=== PATIENT | female | born 1960 | race African-American/Black ===

== ENCOUNTER 2024-08-13 05:30 | Emergency (ER) | payer OTHER ==
[2024-08-13 05:36] VITALS: BMI 18.6
[2024-08-13 09:15] LABS: BASO % 0.6 % (0-2.0); EOS % 1.5 % (0-4.5); HEMATOCRIT 37.4 % (32.4-45.2); HEMOGLOBIN 12.2 GM/dL (10.7-15.3); LYMPH % 19.1 % (8-40); MCHC 32.5 g/dl (32.0-36.0); MEAN CELL VOLUME 92.5 fl (80-96); MEAN PLT VOLUME 7.2 fl (7.5-11.1); MONO % 4.1 % (3.8-10.2); NEUT % 74.7 % (42.8-82.8); PLATELET COUNT 349 10^3/uL (134-434); RBC 4.05 M/mm3 (3.60-5.2); RDW 13.4 % (11.6-15.6); WHITE BLOOD COUNT 9.2 K/mm3 (4.0-10.0)
[2024-08-13 09:36] LABS: CHLORIDE 104 mmol/L (98-107); SODIUM 135 mmol/L (136-145)
[2024-08-13 09:38] LABS: CALCIUM 9.4 mg/dL (8.5-10.1)
[2024-08-13 09:39] LABS: ALBUMIN 3.4 g/dl (3.4-5.0); BLOOD UREA NITROGEN 35.4 mg/dL (7-18); CO2 26 mmol/L (21-32); GLUCOSE,RANDOM 134 mg/dL (74-106); MAGNESIUM 1.7 mg/dL (1.8-2.4)
[2024-08-13 09:42] LABS: CREATININE 1.7 mg/dL (0.55-1.3); SGOT/AST 52 U/L (15-37); SGPT/ALT 22 U/L (13-61)
[2024-08-13 09:44] LABS: BILIRUBIN,TOTAL 0.4 mg/dL (0.2-1); TOT PROT 8.2 g/dl (6.4-8.2)
[2024-08-13 09:45] LABS: ALK PHOS 65 U/L (45-117)
[2024-08-13 09:52] LABS: ANION GAP 5 mmol/L (4-13)
[2024-08-13] MEDS ORDERED: LIDOCAINE 4% PATCH TP ONE (10:45)
[2024-08-13] MEDS ORDERED: MAGNESIUM OXIDE 400 MG TABLET (FP) ONE (10:55)
[2024-08-13] MEDS: LIDOCAINE 4% PATCH TP ONE (10:56)
[2024-08-13] MEDS: LACTATED RINGERS SOLUTION 1,000 ML/1,000 ML INFUS.BAG IV SCH (10:56)
[2024-08-13] MEDS: MAGNESIUM OXIDE 400 MG TABLET (FP) PO ONE (11:10)
[2024-08-13 12:47] LABS: URINE APPEARANCE CLEAR; URINE BILIRUBIN NEGATIVE (NEGATIVE); URINE COLOR YELLOW; URINE GLUCOSE (UA) 3+ (NEGATIVE); URINE KETONE NEGATIVE (NEGATIVE); URINE LEUK ESTERASE NEGATIVE (NEGATIVE); URINE NITRITE NEGATIVE (NEGATIVE); URINE PROTEIN TRACE (NEGATIVE); URINE UROBILINOGEN 0.2 mg/dL (0.2-1.0)
[2024-08-13 12:56] LABS: HIV INTERPRETATION NEGATIVE (NEGATIVE)
[2024-08-13 13:24] LABS: CHLORIDE 102 mmol/L (98-107); SODIUM 135 mmol/L (136-145)
[2024-08-13 14:01] LABS: POTASSIUM 6.4 mmol/L (3.5-5.1)
[2024-08-13 14:11] LABS: GLUCOSE,RANDOM 241 mg/dL (74-106)
[2024-08-13 14:12] LABS: ALBUMIN 3.2 g/dl (3.4-5.0); CALCIUM 9.1 mg/dL (8.5-10.1); CO2 22 mmol/L (21-32)
[2024-08-13 14:15] LABS: CREATININE 1.6 mg/dL (0.55-1.3); SGPT/ALT 20 U/L (13-61)
[2024-08-13 14:16] LABS: BILIRUBIN,TOTAL 0.4 mg/dL (0.2-1); SGOT/AST 52 U/L (15-37)
[2024-08-13 14:17] LABS: TOT PROT 7.6 g/dl (6.4-8.2)
[2024-08-13 14:18] LABS: ALK PHOS 62 U/L (45-117)
[2024-08-13 14:31] LABS: ANION GAP 11 mmol/L (4-13)
[2024-08-13 14:43] LABS: POTASSIUM 4.6 mmol/L (3.5-5.1)
[2024-08-13 14:46] LABS: ALBUMIN 3.3 g/dl (3.4-5.0); BLOOD UREA NITROGEN 35.5 mg/dL (7-18); CALCIUM 9.4 mg/dL (8.5-10.1)
[2024-08-13 14:49] LABS: CREATININE 1.6 mg/dL (0.55-1.3)
[2024-08-13 14:50] LABS: BILIRUBIN,TOTAL 0.4 mg/dL (0.2-1)
[2024-08-13 14:52] LABS: TOT PROT 7.5 g/dl (6.4-8.2)
[2024-08-13] MEDS: DEXTROSE 50%-WATER - 25 GM/50 ML VIAL IVPUSH ONE (16:10)
[2024-08-13] MEDS: CALCIUM GLUCONATE 10% - 1,000 MG/10 ML VIAL IVPB ONE (16:10)
[2024-08-13] MEDS: INSULIN REGULAR HUMAN 100 UNITS/ML *VIAL IVPUSH ONE (16:10)
[2024-08-13] MEDS: ALBUTEROL SO4 0.083% IH SOL 2.5 MG/3 ML VIAL.NEB. NEB ONE (16:11)
[2024-08-13 17:03] VITALS: BP 124/85; PULSE 79; RESP 16; TEMP 98.5
[2024-08-13] MEDS ORDERED: LIDOCAINE PATCH REMOVAL MC ONE (22:00)
== END 2024-08-13 18:06 ==
LOC: JER 05:30
DX: S09.90XA Unspecified injury of head, initial encounter (principal); R42 Dizziness and giddiness; R55 Syncope and collapse; R53.1 Weakness; M54.2 Cervicalgia; G89.29 Other chronic pain; W01.0XXA Fall on same level from slipping, tripping and stumbling without subsequent striking against object, initial encounter; Z20.822 Contact with and (suspected) exposure to COVID-19
CPT/HCPCS: 0241U-QW; 36415; 70450-TC; 71045-TC-FY; 72125-TC; 80053; 81003; 82962; 83735; 84484; 85025; 86803; 87389; 93005; 93010; 99285-25

== ENCOUNTER 2024-10-10 14:59 | Inpatient (IN) | payer MEDICARE, OTHER ==
[2024-10-10 15:54] VITALS: BMI 40.6
[2024-10-10] MEDS ORDERED: LIDOCAINE 4% PATCH TP ONE (16:37)
[2024-10-10] MEDS ORDERED: ACETAMINOPHEN INJECTION 100 ML ONE (16:37)
[2024-10-10 17:02] LABS: BASO % 0.6 % (0-2.0); EOS % 1.7 % (0-4.5); HEMATOCRIT 34.8 % (32.4-45.2); HEMOGLOBIN 11.3 GM/dL (10.7-15.3); LYMPH % 23.7 % (8-40); MCH 29.6 pg (25.7-33.7); MCHC 32.5 g/dl (32.0-36.0); MEAN CELL VOLUME 91.2 fl (80-96); MEAN PLT VOLUME 6.7 fl (7.5-11.1); MONO % 6.7 % (3.8-10.2); NEUT % 67.3 % (42.8-82.8); PLATELET COUNT 327 10^3/uL (134-434); RBC 3.82 M/mm3 (3.60-5.2); RDW 13.6 % (11.6-15.6); WHITE BLOOD COUNT 6.2 K/mm3 (4.0-10.0)
[2024-10-10] MEDS: LIDOCAINE 4% PATCH TP ONE (17:03)
[2024-10-10] MEDS: DEXTROSE 5%-NORMAL SALINE 500 ML IV ONE (17:04)
[2024-10-10] MEDS: ACETAMINOPHEN 1000 MG/100 ML BAG IVPB ONE (17:04)
[2024-10-10 17:13] LABS: INR 1.1 (0.83-1.09); PROTHROMBIN TIME (PATIENT) 12.4 SEC (9.7-13.0)
[2024-10-10 17:16] LABS: ACTIVATED PTT 38.8 SECONDS (25.2-36.5)
[2024-10-10 17:28] LABS: POTASSIUM 4.1 mmol/L (3.5-5.1)
[2024-10-10 17:29] LABS: CALCIUM 8.8 mg/dL (8.5-10.1)
[2024-10-10 17:30] LABS: ALBUMIN 3.4 g/dl (3.4-5.0); BLOOD UREA NITROGEN 28.9 mg/dL (7-18)
[2024-10-10 17:31] LABS: MAGNESIUM 1.3 mg/dL (1.8-2.4)
[2024-10-10 17:35] LABS: CREATININE 1.3 mg/dL (0.55-1.3)
[2024-10-10 17:36] LABS: BILIRUBIN,TOTAL 0.3 mg/dL (0.2-1); TOT PROT 7.4 g/dl (6.4-8.2)
[2024-10-10 19:39] LABS: EPI CELLS 1 /uL (0-25.1); HYALINE CASTS 0 /uL (0-3.1); PH,URINE 6.5 (5.0-8.0); URINE APPEARANCE CLEAR; URINE BACTERIA 16 /uL (0-1359); URINE BILIRUBIN NEGATIVE (NEGATIVE); URINE COLOR YELLOW; URINE GLUCOSE (UA) 3+ (NEGATIVE); URINE KETONE NEGATIVE (NEGATIVE); URINE LEUK ESTERASE NEGATIVE (NEGATIVE); URINE NITRITE NEGATIVE (NEGATIVE); URINE PROTEIN 1+ (NEGATIVE); URINE RBC 8 /uL (0-23.9); URINE UROBILINOGEN 0.2 mg/dL (0.2-1.0); URINE WBC 2 /uL (0-25.8)
[2024-10-10] MEDS ORDERED: ASPIRIN COATED 81 MG TABLET.EC ONE (19:56)
[2024-10-10] MEDS ORDERED: MAGNESIUM SULFATE IN WATER 2 GM/50 ML IVPB IVPB ONE (19:56)
[2024-10-10] MEDS: MAGNESIUM SULFATE IN WATER 2 GM/50 ML IVPB IVPB ONE (20:11)
[2024-10-10] MEDS: ASPIRIN 81 MG CHEWABLE TABLETS PO ONE (20:11)
[2024-10-10] MEDS: LIDOCAINE PATCH REMOVAL MC SCH (22:11)
[2024-10-10 22:32] LABS: HIV INTERPRETATION NEGATIVE (NEGATIVE)
[2024-10-10] MEDS ORDERED: PATIENT'S OWN MEDICATION (NON-FORMULARY) (Dulaglutide [Trulicity] 3 MG/0.5 ML Pen.Injctr) SQ SCH (23:45)
[2024-10-11] MEDS ORDERED: ACETAMINOPHEN 325 MG TABLET (FP) PO PRN (01:31)
[2024-10-11] MEDS: INSULIN ASPART SLIDING SCALE (NOVOLOG) 1 VIAL SQ SCH (06:25)
[2024-10-11] MEDS: PANTOPRAZOLE 40 MG TABLET PO SCH (06:26)
[2024-10-11] MEDS: INSULIN (LEVEMIR) 100 UNITS/ML UNITS SQ SCH (06:26)
[2024-10-11] MEDS: EMPAGLIFLOZIN (JARDIANCE) 25 MG TABLET PO SCH (06:28)
[2024-10-11] MEDS ORDERED: INSULIN (LEVEMIR) 100 UNITS/ML UNITS SQ SCH (07:23)
[2024-10-11] MEDS: TAMSULOSIN HCL 0.4 MG CAP PO SCH (08:52)
[2024-10-11] MEDS: LOSARTAN POTASSIUM 50 MG TABLET PO SCH (09:28)
[2024-10-11] MEDS: ASPIRIN COATED 81 MG TABLET.EC PO SCH (09:28)
[2024-10-11] MEDS: DULoxetine HCL 30 MG CAPSULE.DR PO SCH (09:28)
[2024-10-11] MEDS: GABAPENTIN 300 MG CAPSULE PO SCH (09:28)
[2024-10-11] MEDS: CYANOCOBALAMIN 1,000 MCG TABLET (FP) PO SCH (09:29)
[2024-10-11] MEDS: ENOXAPARIN NA (PORCINE) 40 MG/0.4 ML DISP.SYRIN SQ SCH (09:29)
[2024-10-11] MEDS: NIFEdipine E.R. 90 MG TABLET PO SCH (09:29)
[2024-10-11] MEDS: LIDOCAINE 4% PATCH TP SCH (09:29)
[2024-10-11 10:21] LABS: POTASSIUM 3.9 mmol/L (3.5-5.1)
[2024-10-11 10:28] LABS: ALBUMIN 3.4 g/dl (3.4-5.0); BLOOD UREA NITROGEN 20.8 mg/dL (7-18); CALCIUM 8.9 mg/dL (8.5-10.1)
[2024-10-11 10:29] LABS: MAGNESIUM 1.6 mg/dL (1.8-2.4)
[2024-10-11 10:31] LABS: CREATININE 1.2 mg/dL (0.55-1.3); PHOSPHOROUS 3.5 mg/dL (2.5-4.9)
[2024-10-11 10:35] LABS: BILIRUBIN,TOTAL 0.4 mg/dL (0.2-1)
[2024-10-11 10:36] LABS: TOT PROT 7.6 g/dl (6.4-8.2)
[2024-10-11] MEDS: PATIENT'S OWN MEDICATION (NON-FORMULARY) (Hydroxyzine Hcl [Hydroxyzine Hcl] 10 MG Tablet) PO SCH (10:54)
[2024-10-11 11:03] LABS: HEMATOCRIT 37.1 % (32.4-45.2); HEMOGLOBIN 12.3 GM/dL (10.7-15.3); MCHC 33.2 g/dl (32.0-36.0); MEAN CELL VOLUME 90.4 fl (80-96); MEAN PLT VOLUME 7.1 fl (7.5-11.1); PLATELET COUNT 355 10^3/uL (134-434); RDW 13.5 % (11.6-15.6); WHITE BLOOD COUNT 5.9 K/mm3 (4.0-10.0)
[2024-10-11 18:43] VITALS: BP 124/70; PULSE 82; RESP 17; TEMP 98.4
[2024-10-11] MEDS ORDERED: LIDOCAINE PATCH REMOVAL MC SCH (22:00)
[2024-10-11] MEDS ORDERED: ATORVASTATIN CA 20 MG TABLET (FP) PO SCH (22:00)
== END 2024-10-11 18:44 | disposition home or self-care (01) | DRG 311 ==
LOC: JER 14:59 → JERBED 20:42 → J4S 21:55 → OBSVTOIN 23:42
PROVIDERS: ADMIT Student in an Organized Health Care Education/Training Program; ATTEND Internal Medicine
DX: I24.89 Other forms of acute ischemic heart disease (principal); E11.40 Type 2 diabetes mellitus with diabetic neuropathy, unspecified; I10 Essential (primary) hypertension; E78.5 Hyperlipidemia, unspecified; R32 Unspecified urinary incontinence; M16.10 Unilateral primary osteoarthritis, unspecified hip; M54.9 Dorsalgia, unspecified; G89.29 Other chronic pain
CPT/HCPCS: 36415; 70450-TC; 71046-TC-FY; 72125-TC; 72131-TC; 72170-TC-FY; 73030-TC-LT-FY; 80053; 81003; 82962; 83735; 84100; 84484; 85025; 85027; 85610; 85730; 86803; 87086; 87389; 93005; 93010; 93306-TC; 97116-GP; 97161-GP; 99285-25; G0378; J0131

== ENCOUNTER 2024-10-24 04:15 | Day surgery (SDC) | payer OTHER ==
[2024-10-22 16:17] VITALS: BMI 38.7
[2024-10-24] MEDS ORDERED: BUPIVACAINE HCL/PF 0.75% 10 ML VIAL ONE (07:20)
[2024-10-24] MEDS ORDERED: ACETAMINOPHEN 500 MG TABLET (FP) PO PRN (08:56)
[2024-10-24 16:53] VITALS: RESP 18
[2024-10-24 17:29] VITALS: BP 159/77; PULSE 87; TEMP 97.9
== END 2024-10-24 17:20 | disposition home or self-care (01) ==
LOC: JASU-SURG 04:15
PROVIDERS: ATTEND Pain Medicine Pain Medicine
PROC: 3E0T33Z Introduction of Anti-inflammatory into Peripheral Nerves and Plexi, Percutaneous Approach (ICD-10-PCS; 2024-10-24)
PROC: 3E0T3BZ Introduction of Anesthetic Agent into Peripheral Nerves and Plexi, Percutaneous Approach (ICD-10-PCS; principal; 2024-10-24 15:15)
DX: M47.816 Spondylosis without myelopathy or radiculopathy, lumbar region (principal)
CPT/HCPCS: 76000-TC-FY

== ENCOUNTER 2024-11-10 19:53 | Observation (INO) | payer OTHER ==
[2024-11-10] MEDS ORDERED: ACETAMINOPHEN 500 MG TABLET (FP) ONE (20:50)
[2024-11-10] MEDS ORDERED: ACETAMINOPHEN 325 MG TABLET (FP) ONE (20:56)
[2024-11-10] MEDS ORDERED: LIDOCAINE 4% PATCH TP ONE (20:56)
[2024-11-10] MEDS: ACETAMINOPHEN 325 MG TABLET (FP) PO ONE (21:10)
[2024-11-10] MEDS: LIDOCAINE 4% PATCH TP ONE (21:10)
[2024-11-10] MEDS: SODIUM CHLORIDE 0.9% 500 ML INFUS.BAG IV ONE (21:10)
[2024-11-10 21:12] LABS: BASO % 0.7 % (0-2.0); EOS % 2.1 % (0-4.5); HEMATOCRIT 35.2 % (32.4-45.2); HEMOGLOBIN 11.3 GM/dL (10.7-15.3); MCH 29.4 pg (25.7-33.7); MEAN PLT VOLUME 7.1 fl (7.5-11.1); MONO % 6.5 % (3.8-10.2); NEUT % 71.7 % (42.8-82.8); PLATELET COUNT 319 10^3/uL (134-434); RBC 3.83 M/mm3 (3.60-5.2); RDW 13.3 % (11.6-15.6); WHITE BLOOD COUNT 8.3 K/mm3 (4.0-10.0)
[2024-11-10 21:14] LABS: INR 0.99 (0.83-1.09); PROTHROMBIN TIME (PATIENT) 11.4 SEC (9.7-13.0)
[2024-11-10 21:17] LABS: ACTIVATED PTT 36.2 SECONDS (25.2-36.5)
[2024-11-10 21:23] LABS: CHLORIDE 98 mmol/L (98-107); SODIUM 130 mmol/L (136-145)
[2024-11-10 21:25] LABS: CALCIUM 9.1 mg/dL (8.5-10.1); POTASSIUM 7.4 mmol/L (3.5-5.1)
[2024-11-10 21:26] LABS: ANION GAP 7 mmol/L (4-13); BLOOD UREA NITROGEN 45.2 mg/dL (7-18); CO2 25 mmol/L (21-32); GLUCOSE,RANDOM 317 mg/dL (74-106); MAGNESIUM 1.4 mg/dL (1.8-2.4)
[2024-11-10 21:29] LABS: CREATININE 2.2 mg/dL (0.55-1.3); SGOT/AST 67 U/L (15-37)
[2024-11-10 21:30] LABS: BILIRUBIN,TOTAL 0.6 mg/dL (0.2-1)
[2024-11-10 21:31] LABS: TOT PROT 7.8 g/dl (6.4-8.2)
[2024-11-10 21:32] LABS: ALK PHOS 91 U/L (45-117)
[2024-11-10 21:33] LABS: SGPT/ALT 23 U/L (13-61)
[2024-11-10 22:29] LABS: POTASSIUM 4.5 mmol/L (3.5-5.1)
[2024-11-10 22:31] LABS: BLOOD UREA NITROGEN 44.1 mg/dL (7-18)
[2024-11-10] MEDS: ACETAMINOPHEN 1000 MG/100 ML BAG IVPB ONE (23:09)
[2024-11-10] MEDS: LIDOCAINE PATCH REMOVAL MC SCH (23:16)
[2024-11-10] MEDS ORDERED: MAGNESIUM SULFATE IN WATER 2 GM/50 ML IVPB IVPB ONE (23:17)
[2024-11-10] MEDS: LACTATED RINGERS SOLUTION 1000 ML INFUS.BAG IV ONE (23:29)
[2024-11-10] MEDS: MAGNESIUM SULFATE IN WATER 2 GM/50 ML IVPB IVPB ONE (23:30)
[2024-11-11] MEDS ORDERED: INSULIN REGULAR HUMAN 100 UNITS/ML *VIAL IVPUSH ONE (00:45)
[2024-11-11] MEDS: INSULIN REGULAR HUMAN 100 UNITS/ML *VIAL IVPUSH ONE (01:18)
[2024-11-11 04:04] VITALS: RESP 20; TEMP 97.5; BMI 38.2
[2024-11-11] MEDS ORDERED: SODIUM CHLORIDE 1,000 ML IV SCH (04:30)
[2024-11-11] MEDS: LACTATED RINGERS SOLUTION 1,000 ML/1,000 ML INFUS.BAG IV SCH ×2 (05:30→11:55)
[2024-11-11] MEDS: HEPARIN NA (PORCINE) 5,000 UNITS/ML 1ML VIAL SQ SCH (06:05)
[2024-11-11] MEDS: INSULIN ASPART SLIDING SCALE (NOVOLOG) 1 VIAL SQ SCH (06:56)
[2024-11-11 09:16] LABS: BASO % 0.4 % (0-2.0); EOS % 1.6 % (0-4.5); HEMATOCRIT 33.7 % (32.4-45.2); HEMOGLOBIN 11.5 GM/dL (10.7-15.3); LYMPH % 27.9 % (8-40); MCH 30.4 pg (25.7-33.7); MEAN CELL VOLUME 89.5 fl (80-96); MEAN PLT VOLUME 6.8 fl (7.5-11.1); MONO % 6.6 % (3.8-10.2); NEUT % 63.5 % (42.8-82.8); PLATELET COUNT 355 10^3/uL (134-434); RBC 3.77 M/mm3 (3.60-5.2); RDW 13.4 % (11.6-15.6); WHITE BLOOD COUNT 5.5 K/mm3 (4.0-10.0)
[2024-11-11 09:50] LABS: POTASSIUM 4.4 mmol/L (3.5-5.1)
[2024-11-11 10:13] LABS: CALCIUM 9.3 mg/dL (8.5-10.1)
[2024-11-11 10:14] LABS: ALBUMIN 3.2 g/dl (3.4-5.0); BLOOD UREA NITROGEN 40.8 mg/dL (7-18); MAGNESIUM 1.9 mg/dL (1.8-2.4)
[2024-11-11 10:16] LABS: CREATININE 1.7 mg/dL (0.55-1.3)
[2024-11-11 10:17] LABS: PHOSPHOROUS 3.8 mg/dL (2.5-4.9)
[2024-11-11 10:19] LABS: BILIRUBIN,TOTAL 0.2 mg/dL (0.2-1); TOT PROT 7.1 g/dl (6.4-8.2)
[2024-11-11] MEDS: DULoxetine HCL 30 MG CAPSULE.DR PO SCH (10:48)
[2024-11-11] MEDS: GABAPENTIN 300 MG CAPSULE PO SCH (10:48)
[2024-11-11] MEDS: ASPIRIN COATED 81 MG TABLET.EC PO SCH (10:48)
[2024-11-11] MEDS: PANTOPRAZOLE 40 MG TABLET PO SCH (10:48)
[2024-11-11] MEDS: LIDOCAINE 4% PATCH TP SCH (10:49)
[2024-11-11] MEDS: INSULIN (LEVEMIR) 100 UNITS/ML UNITS SQ SCH (10:56)
[2024-11-11] MEDS ORDERED: INSULIN ASPART SLIDING SCALE (NOVOLOG) 1 VIAL SQ ONE (11:13)
[2024-11-11 16:27] VITALS: BP 160/66; PULSE 81
[2024-11-11] MEDS ORDERED: ATORVASTATIN CA 20 MG TABLET (FP) PO SCH (22:00)
[2024-11-11] MEDS ORDERED: LIDOCAINE PATCH REMOVAL MC SCH (22:00)
== END 2024-11-11 16:47 | disposition home or self-care (01) ==
LOC: JER 19:53 → JERBED 23:44 → J6S 11-11 02:39
PROVIDERS: ADMIT Internal Medicine; ATTEND Internal Medicine
PROC: 3E033GC Introduction of Other Therapeutic Substance into Peripheral Vein, Percutaneous Approach (ICD-10-PCS; principal; 2024-11-10)
PROC: 3E033VG Introduction of Insulin into Peripheral Vein, Percutaneous Approach (ICD-10-PCS; 2024-11-10)
PROC: 3E033NZ Introduction of Analgesics, Hypnotics, Sedatives into Peripheral Vein, Percutaneous Approach (ICD-10-PCS; 2024-11-10)
DX: N17.9 Acute kidney failure, unspecified (principal); I95.1 Orthostatic hypotension; R53.81 Other malaise; I10 Essential (primary) hypertension; E11.65 Type 2 diabetes mellitus with hyperglycemia; E78.5 Hyperlipidemia, unspecified; R29.6 Repeated falls; E83.42 Hypomagnesemia; M54.59 Other low back pain; G89.29 Other chronic pain; E11.40 Type 2 diabetes mellitus with diabetic neuropathy, unspecified; Z87.440 Personal history of urinary (tract) infections; W18.39XA Other fall on same level, initial encounter; Z91.81 History of falling; Y93.89 Activity, other specified; Y92.008 Other place in unspecified non-institutional (private) residence as the place of occurrence of the external cause
CPT/HCPCS: 36415; 71045-TC-FY; 73030-TC-RT-FY; 80048; 80053; 82962; 83036; 83735; 84100; 84484; 85025; 85610; 85730; 93005; 93010; 96365; 96372; 96375; 97116-GP; 97161-GP; 99285-25; G0378; J1644

== ENCOUNTER 2025-01-02 04:00 | Day surgery (SDC) | payer OTHER ==
[2025-01-02] MEDS ORDERED: ACETAMINOPHEN 500 MG TABLET (FP) PO PRN (09:19)
[2025-01-02 11:06] VITALS: PULSE 83; RESP 18
[2025-01-02] MEDS: LIDOCAINE HCL 1% PRESERVATIVE FREE - 30ML VIAL IJ ONE (11:38)
[2025-01-02] MEDS: BUPIVACAINE HCL/PF 0.5% (5 MG/ML) 30 ML VIAL IJ ONE ×3 (11:39→11:44)
[2025-01-02] MEDS: TRIAMCINOLONE ACET 40MG/1ML VIAL IM ONE ×2 (11:40→11:44)
[2025-01-02] MEDS: IOHEXOL 180 MG/1 ML ML IJ ONE ×2 (11:40)
[2025-01-02 12:34] VITALS: BP 130/52; TEMP 97.6
== END 2025-01-02 12:50 | disposition home or self-care (01) ==
LOC: JASU-SURG 04:00
PROVIDERS: ATTEND Pain Medicine Pain Medicine
PROC: 3E0U3BZ Introduction of Anesthetic Agent into Joints, Percutaneous Approach (ICD-10-PCS; 2025-01-02)
PROC: 3E0U33Z Introduction of Anti-inflammatory into Joints, Percutaneous Approach (ICD-10-PCS; principal; 2025-01-02 11:45)
DX: M53.3 Sacrococcygeal disorders, not elsewhere classified (principal)
CPT/HCPCS: 76000-TC-FY

== ENCOUNTER 2025-02-26 17:58 | Emergency (ER) | payer MEDICARE, OTHER ==
[2025-02-26 18:52] VITALS: BMI 38.7
[2025-02-26 20:32] LABS: ABSOLUTE IMMATURE GRANULOCYTES 0.04 x10^3/uL (0.0-0.031); BASOPHILS # 0.03 x10^3/uL (0.01-0.08); EOSINOPHIL % 0.8 % (0.7-5.8); EOSINOPHILS # 0.06 x10^3/uL (0.04-0.36); HEMOGLOBIN 12.2 g/dL (11.2-15.7); MCHC 32.1 g/dl (32.2-35.5); MEAN PLT VOLUME 8.8 fl (9.4-12.3); MONOCYTE # 0.62 x10^3/uL (0.24-0.86); MONOCYTE % 8.3 % (4.7-12.5); PLATELET COUNT 323 x10^3/uL (182-369); RDW 12.7 % (12.4-16.4)
[2025-02-26] MEDS: SODIUM CHLORIDE 1,000 ML IV STA (20:48)
[2025-02-26 20:55] LABS: CHLORIDE 100 mmol/L (98-107); POTASSIUM 4.6 mmol/L (3.5-5.1); SODIUM 134 mmol/L (136-145)
[2025-02-26 20:57] LABS: CALCIUM 9.5 mg/dL (8.5-10.1)
[2025-02-26 20:58] LABS: ALBUMIN 3.1 g/dl (3.4-5.0); ANION GAP 9 mmol/L (4-13); BLOOD UREA NITROGEN 26.8 mg/dL (7-18); CO2 25 mmol/L (21-32); GLUCOSE,RANDOM 312 mg/dL (74-106)
[2025-02-26 21:01] LABS: CREATININE 1.8 mg/dL (0.55-1.3); SGOT/AST 22 U/L (15-37); SGPT/ALT 20 U/L (13-61)
[2025-02-26 21:02] LABS: BILIRUBIN,TOTAL 0.4 mg/dL (0.2-1); TOT PROT 7.4 g/dl (6.4-8.2)
[2025-02-26 21:04] LABS: ALK PHOS 97 U/L (45-117)
[2025-02-26 21:34] LABS: VENOUS O2 SATURATION 88.1 % (70-80); VENOUS PCO2 39.8 mmHg (38-52); VENOUS PH 7.393 (7.310-7.410)
[2025-02-27 00:05] LABS: EPI CELLS 3 /uL (0-25.1); HYALINE CASTS 0 /uL (0-3.1); PH,URINE 5.5 (5.0-8.0); URINE APPEARANCE CLEAR; URINE BACTERIA 0 /uL (0-1359); URINE BILIRUBIN NEGATIVE (NEGATIVE); URINE COLOR YELLOW; URINE GLUCOSE (UA) 3+ (NEGATIVE); URINE KETONE NEGATIVE (NEGATIVE); URINE LEUK ESTERASE NEGATIVE (NEGATIVE); URINE NITRITE NEGATIVE (NEGATIVE); URINE PROTEIN 2+ (NEGATIVE); URINE RBC 5 /uL (0-23.9); URINE UROBILINOGEN 0.2 mg/dL (0.2-1.0); URINE WBC 4 /uL (0-25.8)
[2025-02-27 00:11] LABS: URINE AMPHETAMINES NEGATIVE (NEGATIVE)
[2025-02-27 00:12] LABS: COCAINE, UR NEGATIVE (NEGATIVE); METHADONE, UR NEGATIVE (NEGATIVE); OPIATES, URI NEGATIVE (NEGATIVE); PHENCYCLIDINE,URINE NEGATIVE (NEGATIVE); URINE BENZODIAZEPINES NEGATIVE (NEGATIVE)
[2025-02-27 00:20] LABS: URINE BARBITURATES NEGATIVE (NEGATIVE)
[2025-02-27 01:21] VITALS: BP 163/71; PULSE 85; RESP 18; TEMP 97.6
== END 2025-02-27 02:30 | disposition home or self-care (01) ==
LOC: JER 17:58
PROC: 3E0337Z Introduction of Electrolytic and Water Balance Substance into Peripheral Vein, Percutaneous Approach (ICD-10-PCS; principal; 2025-02-26)
DX: R53.1 Weakness (principal); R53.83 Other fatigue; W01.0XXA Fall on same level from slipping, tripping and stumbling without subsequent striking against object, initial encounter
CPT/HCPCS: 0241U-QW; 36415; 80053; 80307; 81003; 82010; 82803; 82962; 84484; 85025; 87086; 93005; 93010; 99284-25

== ENCOUNTER 2025-05-26 15:42 | Inpatient (IN) | payer OTHER, MEDICARE ==
[2025-05-26 17:47] VITALS: BMI 38.7
[2025-05-26] MEDS: SODIUM CHLORIDE 0.9% 500 ML INFUS.BAG IV ONE (18:12)
[2025-05-26 18:27] LABS: MCHC 31.0 g/dl (32.2-35.5); MEAN CELL VOLUME 95.6 fl (79.4-94.8); MEAN PLT VOLUME 9.3 fl (9.4-12.3); RDW 12.6 % (12.4-16.4)
[2025-05-26 18:39] LABS: INR 1.15 (0.83-1.09); PROTHROMBIN TIME (PATIENT) 12.7 SEC (9.7-13.0)
[2025-05-26 18:42] LABS: ACTIVATED PTT 33.1 SECONDS (25.2-36.5)
[2025-05-26 18:53] LABS: CO2 26.0 mmol/L (21-32); GLUCOSE,RANDOM 197.0 mg/dL (74-106)
[2025-05-26 18:56] LABS: CREATININE 1.6 mg/dL (0.55-1.3); SGOT/AST 30.0 U/L (15-37); SGPT/ALT 25.0 U/L (13-61)
[2025-05-26 18:57] LABS: TOT PROT 7.3 g/dl (6.4-8.2)
[2025-05-26 18:59] LABS: ALK PHOS 85.0 U/L (45-117)
[2025-05-26] MEDS ORDERED: HEPARIN NA (PORCINE) 5,000 UNITS/ML 1ML VIAL ONE (22:03)
[2025-05-26] MEDS: HEPARIN NA (PORCINE) 5,000 UNITS/ML 1ML VIAL SQ SCH (22:13)
[2025-05-26 22:25] LABS: EPI CELLS 15 /uL (0-25.1); HYALINE CASTS 0 /uL (0-3.1); URINE APPEARANCE TURBID; URINE BACTERIA >9,000 /uL (0-1359); URINE BILIRUBIN NEGATIVE (NEGATIVE); URINE COLOR YELLOW; URINE GLUCOSE (UA) 3+ (NEGATIVE); URINE KETONE 1+ (NEGATIVE); URINE LEUK ESTERASE 2+ (NEGATIVE); URINE NITRITE NEGATIVE (NEGATIVE); URINE PROTEIN 3+ (NEGATIVE); URINE UROBILINOGEN 0.2 mg/dL (0.2-1.0); URINE WBC 21049 /uL (0-25.8)
[2025-05-26 22:49] LABS: URINE RBC 329.6 /uL (0-23.9)
[2025-05-26] MEDS ORDERED: LORATADINE 10 MG TABLET PO PRN (23:44)
[2025-05-27] MEDS: LIDOCAINE PATCH REMOVAL MC SCH (00:10)
[2025-05-27] MEDS: SODIUM CHLORIDE 1,000 ML IV SCH (00:26)
[2025-05-27] MEDS: MAGNESIUM SULF 50% (8.12 MEQ/2 ML-1 GM VIAL) IVPB ONE (01:31)
[2025-05-27] MEDS ORDERED: MAGNESIUM SULFATE IN WATER 2 GM/50 ML IVPB IVPB ONE (01:32)
[2025-05-27] MEDS: CEFTRIAXONE 1 GM in DEXTROSE 5%-WATER - 50 ML IVPB SCH (05:11)
[2025-05-27] MEDS: GABAPENTIN 300 MG CAPSULE PO SCH (05:11)
[2025-05-27] MEDS: INSULIN ASPART SLIDING SCALE (NOVOLOG) 1 VIAL SQ SCH (06:00)
[2025-05-27] MEDS ORDERED: INSULIN GLARGINE (LANTUS) 100 UNITS/ML UNITS SQ SCH (07:00)
[2025-05-27 07:58] LABS: ABSOLUTE IMMATURE GRANULOCYTES 0.04 x10^3/uL (0.0-0.031); BASOPHILS # 0.02 x10^3/uL (0.01-0.08); EOSINOPHIL % 2.2 % (0.7-5.8); EOSINOPHILS # 0.13 x10^3/uL (0.04-0.36); MCHC 30.7 g/dl (32.2-35.5); MEAN CELL VOLUME 96.2 fl (79.4-94.8); MEAN PLT VOLUME 9.3 fl (9.4-12.3); MONOCYTE # 0.58 x10^3/uL (0.24-0.86); MONOCYTE % 9.9 % (4.7-12.5); RDW 12.6 % (12.4-16.4)
[2025-05-27 09:12] LABS: CO2 25.0 mmol/L (21-32); GLUCOSE,RANDOM 165.0 mg/dL (74-106); SGPT/ALT 20.0 U/L (13-61)
[2025-05-27 09:15] LABS: SGOT/AST 17.0 U/L (15-37)
[2025-05-27 09:17] LABS: CREATININE 1.3 mg/dL (0.55-1.3)
[2025-05-27 09:18] LABS: TOT PROT 6.6 g/dl (6.4-8.2)
[2025-05-27 09:20] LABS: ALK PHOS 79.0 U/L (45-117)
[2025-05-27] MEDS ORDERED: CEFTRIAXONE 1 GM in DEXTROSE 5%-WATER - 50 ML IVPB SCH (10:00)
[2025-05-27] MEDS: INSULIN GLARGINE (LANTUS) 100 UNITS/ML UNITS SQ SCH (10:19)
[2025-05-27] MEDS: NIFEdipine E.R. 90 MG TABLET PO SCH (10:22)
[2025-05-27] MEDS: LOSARTAN POTASSIUM 50 MG TABLET PO SCH (10:22)
[2025-05-27] MEDS: TAMSULOSIN HCL 0.4 MG CAP PO SCH (10:23)
[2025-05-27] MEDS: CHOLECALCIFEROL (VIT D3) 1,000 UNIT (25 MCG) TABLET PO SCH (10:23)
[2025-05-27] MEDS: ASPIRIN COATED 81 MG TABLET.EC PO SCH (10:23)
[2025-05-27] MEDS: CYANOCOBALAMIN 1,000 MCG TABLET (FP) PO SCH (10:23)
[2025-05-27] MEDS: LIDOCAINE 5% TOPICAL PATCH TP SCH (10:24)
[2025-05-27] MEDS: metFORMIN HCL 500 MG TABLET (FP) PO SCH (18:28)
[2025-05-27] MEDS: ATORVASTATIN CA 20 MG TABLET (FP) PO SCH (21:33)
[2025-05-27] MEDS ORDERED: PATIENT'S OWN MEDICATION (NON-FORMULARY) (Metformin Hcl [Metformin Er Osmotic] 1,000 MG Ta PO SCH (22:00)
[2025-05-28] MEDS: EMPAGLIFLOZIN (JARDIANCE) 25 MG TABLET PO SCH (06:34)
[2025-05-28] MEDS ORDERED: INSULIN GLARGINE (LANTUS) 100 UNITS/ML UNITS SQ SCH (07:00)
[2025-05-28 07:36] LABS: ABSOLUTE IMMATURE GRANULOCYTES 0.05 x10^3/uL (0.0-0.031); BASOPHILS # 0.02 x10^3/uL (0.01-0.08); EOSINOPHIL % 3.5 % (0.7-5.8); EOSINOPHILS # 0.16 x10^3/uL (0.04-0.36); MCHC 31.3 g/dl (32.2-35.5); MEAN CELL VOLUME 94.4 fl (79.4-94.8); MEAN PLT VOLUME 9.4 fl (9.4-12.3); MONOCYTE # 0.52 x10^3/uL (0.24-0.86); MONOCYTE % 11.3 % (4.7-12.5); RDW 12.2 % (12.4-16.4)
[2025-05-28 07:56] LABS: CO2 26.0 mmol/L (21-32); GLUCOSE,RANDOM 218.0 mg/dL (74-106)
[2025-05-28 07:59] LABS: CREATININE 1.8 mg/dL (0.55-1.3); SGOT/AST 15.0 U/L (15-37); SGPT/ALT 19.0 U/L (13-61)
[2025-05-28 08:01] LABS: TOT PROT 6.3 g/dl (6.4-8.2)
[2025-05-28 08:02] LABS: ALK PHOS 84.0 U/L (45-117)
[2025-05-28] MEDS ORDERED: PATIENT'S OWN MEDICATION (NON-FORMULARY) (Empagliflozin 25 MG Tablet) PO SCH (10:00)
[2025-05-28] MEDS: INSULIN (NOVOLOG) ASPART 100 UNITS/ML 10ML VIAL SQ ONE (22:28)
[2025-05-29] MEDS: INSULIN GLARGINE (LANTUS) 100 UNITS/ML UNITS SQ SCH (06:19)
[2025-05-29] MEDS: INSULIN ASPART SLIDING SCALE (NOVOLOG) 1 VIAL SQ SCH (06:21)
[2025-05-29 08:09] LABS: ABSOLUTE IMMATURE GRANULOCYTES 0.10 x10^3/uL (0.0-0.031); BASOPHILS # 0.02 x10^3/uL (0.01-0.08); EOSINOPHIL % 3.6 % (0.7-5.8); EOSINOPHILS # 0.18 x10^3/uL (0.04-0.36); MCHC 31.6 g/dl (32.2-35.5); MEAN CELL VOLUME 95.1 fl (79.4-94.8); MEAN PLT VOLUME 9.6 fl (9.4-12.3); MONOCYTE # 0.55 x10^3/uL (0.24-0.86); MONOCYTE % 10.9 % (4.7-12.5); RDW 12.0 % (12.4-16.4)
[2025-05-29 08:33] LABS: CO2 26.0 mmol/L (21-32); GLUCOSE,RANDOM 266.0 mg/dL (74-106)
[2025-05-29 08:34] LABS: CREATININE 1.9 mg/dL (0.55-1.3)
[2025-05-29 08:35] LABS: SGPT/ALT 21.0 U/L (13-61)
[2025-05-29 08:36] LABS: SGOT/AST 14.0 U/L (15-37); TOT PROT 6.4 g/dl (6.4-8.2)
[2025-05-29 08:37] LABS: ALK PHOS 99.0 U/L (45-117)
[2025-05-29] MEDS: SODIUM CHLORIDE 0.45% 1,000 ML IV SCH (12:00)
[2025-05-30 08:23] LABS: ABSOLUTE IMMATURE GRANULOCYTES 0.17 x10^3/uL (0.0-0.031); BASOPHILS # 0.04 x10^3/uL (0.01-0.08); EOSINOPHIL % 3.6 % (0.7-5.8); EOSINOPHILS # 0.20 x10^3/uL (0.04-0.36); MCHC 31.3 g/dl (32.2-35.5); MEAN CELL VOLUME 94.6 fl (79.4-94.8); MEAN PLT VOLUME 9.0 fl (9.4-12.3); MONOCYTE # 0.53 x10^3/uL (0.24-0.86); MONOCYTE % 9.5 % (4.7-12.5); RDW 12.1 % (12.4-16.4)
[2025-05-30 09:28] LABS: GLUCOSE,RANDOM 100.0 mg/dL (74-106)
[2025-05-30 09:29] LABS: CO2 27.0 mmol/L (21-32)
[2025-05-30 09:32] LABS: CREATININE 1.3 mg/dL (0.55-1.3); SGOT/AST 17.0 U/L (15-37); SGPT/ALT 20.0 U/L (13-61)
[2025-05-30 09:33] LABS: TOT PROT 6.6 g/dl (6.4-8.2)
[2025-05-30 09:34] LABS: ALK PHOS 82.0 U/L (45-117)
[2025-05-30 10:18] VITALS: BP 124/79; PULSE 89; RESP 18; TEMP 97.3
== END 2025-05-30 14:00 | disposition home or self-care (01) | DRG 204 ==
LOC: JER 15:42 → JERBED 21:27 → OBSVTOIN 21:48 → J4S 05-27 01:58
PROVIDERS: ADMIT Internal Medicine; ATTEND Internal Medicine
DX: R55 Syncope and collapse (principal); I10 Essential (primary) hypertension; E78.5 Hyperlipidemia, unspecified; E11.42 Type 2 diabetes mellitus with diabetic polyneuropathy; M62.82 Rhabdomyolysis; E83.42 Hypomagnesemia; E66.9 Obesity, unspecified; N17.9 Acute kidney failure, unspecified; N39.0 Urinary tract infection, site not specified; M54.9 Dorsalgia, unspecified; Z68.38 Body mass index [BMI] 38.0-38.9, adult; F32.A Depression, unspecified
CPT/HCPCS: 36415; 70450-TC; 70551-TC; 71045-TC-FY; 72125-TC; 73030-TC-RT-FY; 80053; 81003; 82010; 82550; 82553; 82962; 83036; 83605; 83735; 84100; 84484; 85025; 85027; 85610; 85730; 87086; 93005; 93010; 97116-GP; 97161-GP; 99285-25; G0378

== ENCOUNTER 2025-06-28 18:02 | Inpatient (IN) | payer MEDICARE, OTHER ==
[2025-06-28] MEDS ORDERED: LIDOCAINE 4% PATCH TP ONE (18:51)
[2025-06-28] MEDS: LIDOCAINE 4% PATCH TP ONE (18:56)
[2025-06-28 19:08] LABS: BG HCT 41.0 % (32.4-45.2); VENOUS BASE EXCESS -2.6 mmol/L (-2-2); VENOUS O2 SATURATION 25.4 % (70-80); VENOUS PCO2 47.6 mmHg (38-52); VENOUS PH 7.318 (7.310-7.410)
[2025-06-28 19:18] LABS: ABSOLUTE IMMATURE GRANULOCYTES 0.08 x10^3/uL (0.0-0.031); BASOPHILS # 0.02 x10^3/uL (0.01-0.08); EOSINOPHIL % 0.7 % (0.7-5.8); EOSINOPHILS # 0.06 x10^3/uL (0.04-0.36); MCHC 32.9 g/dl (32.2-35.5); MEAN CELL VOLUME 91.5 fl (79.4-94.8); MEAN PLT VOLUME 9.3 fl (9.4-12.3); MONOCYTE # 0.57 x10^3/uL (0.24-0.86); MONOCYTE % 6.6 % (4.7-12.5); RDW 12.7 % (12.4-16.4)
[2025-06-28 19:36] LABS: CO2 26.0 mmol/L (21-32); GLUCOSE,RANDOM 373.0 mg/dL (74-106)
[2025-06-28 19:39] LABS: CREATININE 2.3 mg/dL (0.55-1.3); SGOT/AST 16.0 U/L (15-37); SGPT/ALT 20.0 U/L (13-61)
[2025-06-28 19:41] LABS: TOT PROT 7.8 g/dl (6.4-8.2)
[2025-06-28 19:42] LABS: ALK PHOS 122.0 U/L (45-117)
[2025-06-28] MEDS ORDERED: ACETAMINOPHEN INJECTION 100 ML ONE (19:54)
[2025-06-28] MEDS: ACETAMINOPHEN 1000 MG/100 ML BAG IVPB ONE (20:04)
[2025-06-28] MEDS: LACTATED RINGERS SOLUTION 1000 ML INFUS.BAG IV ONE (20:05)
[2025-06-28] MEDS: INSULIN (NOVOLOG MIX 70/30) 100 UNITS/ML MDV SQ ONE (21:08)
[2025-06-29 00:46] VITALS: BMI 36.4
[2025-06-29 01:22] LABS: HIV INTERPRETATION NEGATIVE (NEGATIVE)
[2025-06-29 01:47] LABS: HCV DIAGNOSTIC IN-HOUSE W/RFLX NON-REACTIVE (NONREACTIVE)
[2025-06-29] MEDS ORDERED: ACETAMINOPHEN 325 MG TABLET (FP) PO PRN (02:00)
[2025-06-29 02:02] LABS: EPI CELLS 21 /uL (0-25.1); HYALINE CASTS 1 /uL (0-3.1); URINE APPEARANCE CLOUDY; URINE BACTERIA >9,000 /uL (0-1359); URINE BILIRUBIN NEGATIVE (NEGATIVE); URINE COLOR YELLOW; URINE GLUCOSE (UA) 3+ (NEGATIVE); URINE KETONE NEGATIVE (NEGATIVE); URINE LEUK ESTERASE 2+ (NEGATIVE); URINE NITRITE POSITIVE (NEGATIVE); URINE PROTEIN 1+ (NEGATIVE); URINE RBC 16 /uL (0-23.9); URINE UROBILINOGEN 0.2 mg/dL (0.2-1.0); URINE WBC 678 /uL (0-25.8)
[2025-06-29] MEDS: INSULIN ASPART SLIDING SCALE (NOVOLOG) 1 VIAL SQ SCH (06:44)
[2025-06-29] MEDS: LIDOCAINE PATCH REMOVAL MC SCH ×2 (06:44→21:47)
[2025-06-29 07:52] LABS: ABSOLUTE IMMATURE GRANULOCYTES 0.03 x10^3/uL (0.0-0.031); BASOPHILS # 0.02 x10^3/uL (0.01-0.08); EOSINOPHIL % 1.7 % (0.7-5.8); EOSINOPHILS # 0.11 x10^3/uL (0.04-0.36); MCHC 32.1 g/dl (32.2-35.5); MEAN CELL VOLUME 93.3 fl (79.4-94.8); MEAN PLT VOLUME 9.2 fl (9.4-12.3); MONOCYTE # 0.63 x10^3/uL (0.24-0.86); MONOCYTE % 9.8 % (4.7-12.5); RDW 12.9 % (12.4-16.4)
[2025-06-29 11:08] LABS: CO2 27.0 mmol/L (21-32); CREATININE 1.7 mg/dL (0.55-1.3); GLUCOSE,RANDOM 175.0 mg/dL (74-106)
[2025-06-29] MEDS: LIDOCAINE 5% TOPICAL PATCH TP SCH (16:43)
[2025-06-29] MEDS: metFORMIN HCL 500 MG TABLET (FP) PO SCH (16:43)
[2025-06-29] MEDS: GABAPENTIN 300 MG CAPSULE PO SCH (16:43)
[2025-06-29] MEDS: ATORVASTATIN CA 20 MG TABLET (FP) PO SCH ×2 (16:45→21:47)
[2025-06-30 09:51] LABS: ABSOLUTE IMMATURE GRANULOCYTES 0.04 x10^3/uL (0.0-0.031); BASOPHILS # 0.03 x10^3/uL (0.01-0.08); EOSINOPHIL % 1.6 % (0.7-5.8); EOSINOPHILS # 0.11 x10^3/uL (0.04-0.36); MCHC 31.6 g/dl (32.2-35.5); MEAN CELL VOLUME 94.3 fl (79.4-94.8); MEAN PLT VOLUME 9.0 fl (9.4-12.3); MONOCYTE # 0.51 x10^3/uL (0.24-0.86); MONOCYTE % 7.4 % (4.7-12.5); RDW 12.7 % (12.4-16.4)
[2025-06-30] MEDS: LOSARTAN POTASSIUM 50 MG TABLET PO SCH (10:05)
[2025-06-30] MEDS: CEFTRIAXONE 1 GM in DEXTROSE 5%-WATER - 50 ML IVPB SCH (10:06)
[2025-06-30] MEDS: ASPIRIN COATED 81 MG TABLET.EC PO SCH (10:06)
[2025-06-30 11:06] LABS: ALK PHOS 115.0 U/L (45-117); CO2 27.0 mmol/L (21-32); CREATININE 1.53 mg/dL (0.55-1.3); GLUCOSE,RANDOM 206.0 mg/dL (74-106); SGOT/AST 13.0 U/L (15-37); SGPT/ALT 19.0 U/L (13-61); TOT PROT 7.8 g/dl (6.4-8.2)
[2025-06-30] MEDS: HEPARIN NA (PORCINE) 5,000 UNITS/ML 1ML VIAL SQ SCH (22:05)
[2025-07-01 08:56] LABS: ABSOLUTE IMMATURE GRANULOCYTES 0.04 x10^3/uL (0.0-0.031); BASOPHILS # 0.02 x10^3/uL (0.01-0.08); EOSINOPHIL % 1.8 % (0.7-5.8); EOSINOPHILS # 0.12 x10^3/uL (0.04-0.36); MCHC 31.4 g/dl (32.2-35.5); MEAN CELL VOLUME 94.0 fl (79.4-94.8); MEAN PLT VOLUME 9.4 fl (9.4-12.3); MONOCYTE # 0.56 x10^3/uL (0.24-0.86); MONOCYTE % 8.6 % (4.7-12.5); RDW 12.5 % (12.4-16.4)
[2025-07-01 10:00] LABS: GLUCOSE,RANDOM 253.0 mg/dL (74-106)
[2025-07-01 10:01] LABS: TOT PROT 6.7 g/dl (6.4-8.2)
[2025-07-01 10:02] LABS: CO2 22.0 mmol/L (21-32)
[2025-07-01 10:03] LABS: ALK PHOS 107.0 U/L (40-150)
[2025-07-01 10:06] LABS: CREATININE 1.55 mg/dL (0.55-1.3); SGOT/AST 15.0 U/L (5-34); SGPT/ALT 9.0 U/L (0-55)
[2025-07-01] MEDS: INSULIN GLARGINE (LANTUS) 100 UNITS/ML UNITS SQ SCH (10:33)
[2025-07-01] MEDS: TAMSULOSIN HCL 0.4 MG CAP PO SCH (10:34)
[2025-07-01] MEDS: MAGNESIUM 1GM/D5W - 1 GM/100 ML IVPB IVPB ONE ×2 (11:33→14:57)
[2025-07-01] MEDS: INSULIN (NOVOLOG) ASPART 100 UNITS/ML 10ML VIAL SQ SCH (11:33)
[2025-07-01] MEDS: SODIUM CHLORIDE 1,000 ML IV SCH (11:56)
[2025-07-01] MEDS: MAGNESIUM 1GM/D5W 100ML - 100 ML IVPB IVPB ONE (13:11)
[2025-07-01 19:21] LABS: LDL CHOLESTEROL (ONLY SJRH) 108.0 mg/dL (5-100)
[2025-07-01 19:29] LABS: N-TERMINAL BNP 138.2 pg/mL (0-299.9)
[2025-07-02 08:50] LABS: MCHC 31.8 g/dl (32.2-35.5); MEAN CELL VOLUME 94.0 fl (79.4-94.8); MEAN PLT VOLUME 8.9 fl (9.4-12.3); RDW 12.4 % (12.4-16.4)
[2025-07-02 09:24] LABS: GLUCOSE,RANDOM 186.0 mg/dL (74-106)
[2025-07-02 09:25] LABS: CO2 26.0 mmol/L (21-32)
[2025-07-02 09:29] LABS: CREATININE 1.34 mg/dL (0.55-1.3)
[2025-07-02] MEDS: SODIUM CHLORIDE 1,000 ML IV SCH (11:16)
[2025-07-02 13:48] LABS: LDL CHOLESTEROL (ONLY SJRH) 105.0 mg/dL (5-100)
[2025-07-02] MEDS: INSULIN (NOVOLOG) ASPART 100 UNITS/ML 10ML VIAL SQ SCH (17:00)
[2025-07-02] MEDS: ATORVASTATIN CA 80 MG TABLET (FP) PO SCH (22:07)
[2025-07-03] MEDS: INSULIN GLARGINE (LANTUS) 100 UNITS/ML UNITS SQ SCH (06:15)
[2025-07-03 06:48] LABS: ABSOLUTE IMMATURE GRANULOCYTES 0.09 x10^3/uL (0.0-0.031); BASOPHILS # 0.04 x10^3/uL (0.01-0.08); EOSINOPHIL % 2.9 % (0.7-5.8); EOSINOPHILS # 0.18 x10^3/uL (0.04-0.36); MCHC 31.4 g/dl (32.2-35.5); MEAN CELL VOLUME 93.6 fl (79.4-94.8); MEAN PLT VOLUME 9.2 fl (9.4-12.3); MONOCYTE # 0.52 x10^3/uL (0.24-0.86); MONOCYTE % 8.4 % (4.7-12.5); RDW 12.3 % (12.4-16.4)
[2025-07-03 07:04] LABS: GLUCOSE,RANDOM 226.0 mg/dL (74-106)
[2025-07-03 07:06] LABS: CO2 25.0 mmol/L (21-32)
[2025-07-03 07:10] LABS: CREATININE 1.25 mg/dL (0.55-1.3)
[2025-07-03] MEDS: LOSARTAN POTASSIUM 50 MG TABLET PO SCH (10:35)
[2025-07-03] MEDS: EMPAGLIFLOZIN (JARDIANCE) 25 MG TABLET PO SCH (16:37)
[2025-07-04] MEDS: EMPAGLIFLOZIN (JARDIANCE) 25 MG TABLET PO SCH (07:09)
[2025-07-04] MEDS: INSULIN GLARGINE (LANTUS) 100 UNITS/ML UNITS SQ SCH (08:39)
[2025-07-04] MEDS: INSULIN GLARGINE (LANTUS) 100 UNITS/ML UNITS SQ ONE (09:57)
[2025-07-04] MEDS: LOSARTAN POTASSIUM 50 MG TABLET PO SCH (09:57)
[2025-07-04 10:06] VITALS: BP 137/73; PULSE 75; RESP 17; TEMP 97.3
[2025-07-04] MEDS: INSULIN (NOVOLOG) ASPART 100 UNITS/ML 10ML VIAL SQ SCH (12:02)
[2025-07-04] MEDS: CLOPIDOGREL BISULFATE 75 MG TABLET (FP) PO SCH (12:03)
== END 2025-07-04 02:00 | disposition home or self-care (01) | DRG 45 ==
LOC: JER 18:02 → UNDOADMOB 20:42 → JERBED 20:42 → J8W 22:58 → OBSVTOIN 07-02 09:55 → J4W 07-02 13:12
PROVIDERS: ADMIT Hospitalist; ATTEND Student in an Organized Health Care Education/Training Program
DX: I63.9 Cerebral infarction, unspecified (principal); E11.22 Type 2 diabetes mellitus with diabetic chronic kidney disease; E11.43 Type 2 diabetes mellitus with diabetic autonomic (poly)neuropathy; N17.9 Acute kidney failure, unspecified; E11.65 Type 2 diabetes mellitus with hyperglycemia; E83.42 Hypomagnesemia; E66.812 Obesity, class 2; E78.5 Hyperlipidemia, unspecified; F32.A Depression, unspecified; I12.9 Hypertensive chronic kidney disease with stage 1 through stage 4 chronic kidney disease, or unspecified chronic kidney disease; I95.1 Orthostatic hypotension; N18.9 Chronic kidney disease, unspecified; N39.0 Urinary tract infection, site not specified; Z68.36 Body mass index [BMI] 36.0-36.9, adult
CPT/HCPCS: 36415; 70450-TC; 70551-TC; 80048; 80053; 80061; 81003; 82010; 82803; 82962; 83036; 83735; 83880; 84100; 84443; 84484; 85025; 85027; 86803; 87086; 87389; 87637-QW; 93005; 93010; 93306-TC; 93880-TC; 97116-GP; 97161-GP; 99285-25; G0378

== ENCOUNTER 2025-07-21 15:39 | Emergency (ER) | payer OTHER ==
[2025-07-21 16:03] VITALS: BP 136/55; PULSE 76; RESP 16; TEMP 97.6; BMI 36.6
== END 2025-07-21 17:59 | disposition home or self-care (01) ==
LOC: JER 15:39
DX: Z04.3 Encounter for examination and observation following other accident (principal); W06.XXXA Fall from bed, initial encounter
CPT/HCPCS: 99283-25